=== PATIENT | female | born 1970 | race Caucasian/White ===

== ENCOUNTER 2020-10-07 02:17 | Outpatient (CLI) | payer MEDICAID, SELFPAY ==
--- NOTE | 2020-10-07 14:07 | DI.US_ITS ---
APPROVED REPORT EXAM: Comprehensive 2D, Doppler, and color-flow Echocardiogram Patient Location: Out-Patient Rn On Site: Larissa Reyes RDCS ([place]) Indications: Malignant neoplasm of overlapping sites of Right breast, Pre Chemotherapy Other Information Study Quality: Good Conclusion Left Ventricle : The left ventricle is normal size. The left ventricular systolic function is normal. The left ventricular ejection fraction is within the normal range. There is normal left ventricular wall thickness. There is normal LV segmental wall motion. The left ventricular diastolic function is normal. LVEF is 59%. Average global longitudinal strain is -17.64%. Right Ventricle : The right ventricle is normal size. The right ventricular systolic function is norm al. The RVSP is 21.3mmHg. Valves: There are no hemodynamically significant valvular lesions. Great Vessels : The aortic root is normal in size. The ascending aorta is normal in size. Aortic arch is normal in caliber. IVC is normal in size and collapses >50% with inspiration. Please see remainder of study for further details. Wall motion Left Ventricle The left ventricle is normal size. The left ventricular systolic function is normal. The left ventric ular ejection fraction is within the normal range. There is normal left ventricular wall thickness. T here is normal LV segmental wall motion. The left ventricular diastolic function is normal. There is no ventricular septal defect visualized. LVEF is 59%. Average global longitudinal strain is -17.64%. Right Ventricle The right ventricle is normal size. The right ventricular systolic function is normal. The RVSP is 21 .3mmHg. Atria The left atrium size is normal. The right atrium size is normal. The interatrial septum is intact wit h no evidence for an atrial septal defect. Aortic Valve The aortic valve is normal in structure. Aortic valve is trileaflet. There is no aortic valvular sten osis. Trace aortic regurgitation. Mitral Valve The mitral valve is normal in structure. No evidence of mitral valve stenosis. Trace mitral regurgita tion. Tricuspid Valve The tricuspid valve is normal in structure. There is no tricuspid valve stenosis. Trace tricuspid reg urgitation. Pulmonic Valve The pulmonary valve is normal in structure. There is no pulmonic valvular stenosis. There is no pulmo graciela valvular regurgitation. Great Vessels The aortic root is normal in size. The ascending aorta is normal in size. Aortic arch is normal in ca liber. IVC is normal in size and collapses >50% with inspiration. Pericardium There is no pericardial effusion. 2D Dimensions IVSD d PLAX 0.81 cm F: 0.6-1.0 LV Vol A2C d MOD 75.8 mL LVPW d PLAX 0.80 cm F: 0.6 - 1.0 LV Vol A4C d MOD 68.8 mL LVID d PLAX 4.20 cm F: 3.8 - 5.2 LA vol/ BSA A4C s A-L 10.5 mL/m2 LVDs 2.87 cm F: 2.2 - 3.5 LA Area A4C s MOD 8.41 cm2 Ao Root d 2.43 cm F: 2.7 - 3.3 LV EF A4C MOD 60.7 % RA Area A4C 12.29 cm2 LV EF A2C MOD 58.3 % RA Vol/ BSA A4C s A-L 18.1 mL/m2 LV EF Biplane MOD 58.4 % Ao Asc Diam d 2.73 cm F: 2.3 - 3.1 SV 43.91 mL LV EF Teichholz 59.7 % SV Index 27.05 mL/m2 LVEF (Bell's) 58.36 % F: 54 - 74 LV Volume 60.80 mL F: 46 - 106 LV Volume Index 37.53 mL/m2 F: 29 - 61 LV Vol Biplane MOD 75.2 mL CO 3.27 mL/min FS 31.50 % M-Mode TAPSE 2.27 cm (M/F) >1.7 LV Diastology MV E' medial 0.111 (>0.07 m/s) E/A Ratio 1.1 LV E/e MED 6.50 (<14) MV E Vmax 0.72 (0.4-1.3 m/s) MV E' lateral 0.144 (>0.1 m/s) MV A Vmax 0.65 (0.4-1.3 m/s) LV E/e LAT 5.00 (<14) MV E/A Ratio 1.04 MV E/E' medial 6.51 MV E/E' lateral 5.02 Aortic Valve LVOT Area 2.89 cm2 AoV Area Vmax 2.50 cm2 LVOT Vmax 1.37 m/s AoV Area/ BSA (Vmax) 1.54 cm2/m2 LVOT Mean Usman. 0.85 m/s ZEYNEP Mean Usman. 2.32 cm2 LVOT Peak Grad 7.5 mmHg ZEYNEP Mean Usman. Index 1.43 cm2/m2 LVOT Mean Grad 3.5 mmHg AR DT 2116 msec LVOT VTI 0.260 m AR PHT 614 msec LVOT Diam s 1.90 cm AoV Vmax 1.58 m/s Velocity Ratio 0.86 AoV Mean Usman. 1.06 m/s AoV Peak Grad 10.0 mmHg LVOT SV 74.95 mL AoV Mean Grad 5.1 mmHg AoV VTI 0.251 m AoV Area VTI 2.99 cm2 AoV Area/ BSA (VTI) 1.84 cm/m2 Mitral Valve MV DT 255 (160-240 msec) MV PHT 74 msec MV Area PHT 2.98 cm2 MV VTI 0.208 m MV VTI Annulus 0.214 m MV Area VTI 3.70 (4.0-6.0 cm2) Pulmonary Valve PV Vmax 1.09 (0.5-1.5 m/s) RVOT Peak Gr. 2.23 mmHg PV Peak Grad 4.7 mmHg RVOT Mean Gr. 1.35 mmHg PV Mean Grad 3.1 mmHg RVOT VTI 0.164 m PV VTI 0.234 m RVOT Vmax 0.75 m/s Tricuspid Valve TR Peak Grad 18.3 mmHg TR Vmax 2.14 m/s RA Pressure 3.00 mmHg RVSP (TR) 21.3 mmHg
== END 2020-10-07 02:37 ==
PROVIDERS: PCP Neuromusculoskeletal Medicine & OMM; Visit Provider Internal Medicine Hematology & Oncology
DX: C50.811 Malignant neoplasm of overlapping sites of right female breast (principal); Z17.1 Estrogen receptor negative status [ER-]; Z01.810 Encounter for preprocedural cardiovascular examination
CPT/HCPCS: 93306

== ENCOUNTER 2020-11-20 03:28 | Outpatient (RCR) | payer MEDICAID, SELFPAY ==
[2020-10-30 08:39] LABS: Absolute Basophil Count 0.04 10^3/uL (0.0-0.2); Absolute Eosinophil Count 0.21 10^3/uL (0.0-0.7); Absolute Lymphocyte Count 2.12 10^3/uL (1.2-3.4); Absolute Monocyte Count 0.43 10^3/uL (0.1-0.8); Absolute Neutrophil Count 2.78 10^3/uL (1.2-6.7); Basophils % 0.7; Eosinophils % 3.8; HCT 36.5 % (36.0-46.0); HGB 12.8 g/dL (11.2-15.7); MCH 29.8 pg (27.0-33.0); MCHC 35.1 % (32.0-36.0); MCV 84.9 fL (80-95); MPV 11.3 fL (8.0-11.0); Monocytes % 7.7; Neutrophils % 49.8; Nucleated RBC 0 %; Platelet Count 294 10^3/uL (130-400); RDW 12.4 % (11.7-14.6); RDW-SD 37.8 fL; WBC 5.58 10^3/uL (4.4-10.8)
[2020-10-30 08:58] LABS: ALT 23 U/L (14-59); AST 12 U/L (15-37); Albumin 3.7 g/dL (3.4-5.0); Alkaline Phosphatase 64 U/L (46-116); Anion Gap 9.8 mmol/L (3-11); BUN 16 mg/dL (7-18); Bilirubin, Total 0.8 mg/dL (0.2-1.0); CO2 28.2 mmol/L (21.0-32.0); CREATININE 0.8 mg/dL (0.55-1.02); Chloride 103 mmol/L (98-107); Glucose 88 mg/dL (74-106); Potassium 3.8 mmol/L (3.5-5.1); Sodium 141 mmol/L (136-145); Total Protein 7.6 g/dL (6.4-8.2)
[2020-11-20] MEDS: Normal Saline Flush 10 ML SYR IVP (08:05)
[2020-11-20 08:12] LABS: Abs Immature Grans 0.01 10^3/uL (0.0-0.06); Absolute Basophil Count 0.05 10^3/uL (0.0-0.2); Absolute Eosinophil Count 0.05 10^3/uL (0.0-0.7); Absolute Lymphocyte Count 1.44 10^3/uL (1.2-3.4); Absolute Monocyte Count 0.57 10^3/uL (0.1-0.8); Absolute Neutrophil Count 2.82 10^3/uL (1.2-6.7); HCT 31.6 % (36.0-46.0); HGB 10.9 g/dL (11.2-15.7); Immature Grans % 0.2; Lymphocytes % 29.1; MCH 29.9 pg (27.0-33.0); MCHC 34.5 % (32.0-36.0); MCV 86.6 fL (80-95); MPV 10.8 fL (8.0-11.0); Monocytes % 11.5; Neutrophils % 57.2; Nucleated RBC 0 %; Platelet Count 365 10^3/uL (130-400); RBC 3.65 10^6/uL (3.93-5.22); RDW 13.3 % (11.7-14.6); RDW-SD 40.4 fL; WBC 4.94 10^3/uL (4.4-10.8)
[2020-11-20 08:29] LABS: ALT 50 U/L (14-59); AST 19 U/L (15-37); Albumin 3.7 g/dL (3.4-5.0); Alkaline Phosphatase 55 U/L (46-116); Anion Gap 7.9 mmol/L (3-11); BUN 13 mg/dL (7-18); Bilirubin, Total 0.6 mg/dL (0.2-1.0); CO2 28.1 mmol/L (21.0-32.0); CREATININE 0.8 mg/dL (0.55-1.02); Chloride 106 mmol/L (98-107); Glucose 94 mg/dL (74-106); Potassium 3.8 mmol/L (3.5-5.1); Sodium 142 mmol/L (136-145); Total Protein 7.2 g/dL (6.4-8.2)
== END 2020-11-26 23:59 | disposition home or self-care (01) ==
LOC: INF 03:28
PROVIDERS: PCP Neuromusculoskeletal Medicine & OMM; Visit Provider Internal Medicine Hematology & Oncology
DX: C50.811 Malignant neoplasm of overlapping sites of right female breast (principal); Z17.0 Estrogen receptor positive status [ER+]; Z45.2 Encounter for adjustment and management of vascular access device
CPT/HCPCS: 36591; 80053; 85025

== ENCOUNTER 2020-12-11 03:03 | Outpatient (RCR) | payer MEDICAID, SELFPAY ==
[2020-12-11] MEDS: Normal Saline Flush 10 ML SYR IVP (10:34)
[2020-12-11 10:37] LABS: Abs Immature Grans 0.01 10^3/uL (0.0-0.06); Absolute Basophil Count 0.04 10^3/uL (0.0-0.2); Absolute Eosinophil Count 0.01 10^3/uL (0.0-0.7); Absolute Lymphocyte Count 1.61 10^3/uL (1.2-3.4); Absolute Monocyte Count 0.49 10^3/uL (0.1-0.8); Absolute Neutrophil Count 2.35 10^3/uL (1.2-6.7); Basophils % 0.9; Eosinophils % 0.2; HCT 31.3 % (36.0-46.0); HGB 10.7 g/dL (11.2-15.7); Immature Grans % 0.2; Lymphocytes % 35.7; MCH 30.2 pg (27.0-33.0); MCHC 34.2 % (32.0-36.0); MCV 88.4 fL (80-95); MPV 11.1 fL (8.0-11.0); Monocytes % 10.9; Neutrophils % 52.1; Nucleated RBC 0 %; Platelet Count 248 10^3/uL (130-400); RBC 3.54 10^6/uL (3.93-5.22); RDW 15.1 % (11.7-14.6); RDW-SD 47.6 fL; WBC 4.51 10^3/uL (4.4-10.8)
[2020-12-11 11:04] LABS: ALT 80 U/L (14-59); AST 37 U/L (15-37); Alkaline Phosphatase 65 U/L (46-116); Anion Gap 9.3 mmol/L (3-11); BUN 11 mg/dL (7-18); Bilirubin, Total 0.7 mg/dL (0.2-1.0); CO2 26.7 mmol/L (21.0-32.0); CREATININE 0.9 mg/dL (0.55-1.02); Calcium 9.4 mg/dL (8.5-10.1); Chloride 105 mmol/L (98-107); Glucose 93 mg/dL (74-106); Potassium 3.7 mmol/L (3.5-5.1); Sodium 141 mmol/L (136-145); Total Protein 7.6 g/dL (6.4-8.2)
== END 2020-12-27 23:59 | disposition home or self-care (01) ==
LOC: INF 03:03
PROVIDERS: PCP Neuromusculoskeletal Medicine & OMM; Visit Provider Internal Medicine Hematology & Oncology
DX: C50.811 Malignant neoplasm of overlapping sites of right female breast (principal); Z17.0 Estrogen receptor positive status [ER+]; Z45.2 Encounter for adjustment and management of vascular access device
CPT/HCPCS: 36591; 80053; 85025

== ENCOUNTER 2021-01-22 02:30 | Outpatient (RCR) | payer MEDICAID, SELFPAY ==
[2021-01-01 09:45] LABS: Absolute Basophil Count 0.02 10^3/uL (0.0-0.2); Absolute Lymphocyte Count 1.29 10^3/uL (1.2-3.4); Absolute Monocyte Count 0.43 10^3/uL (0.1-0.8); Basophils % 0.5; HCT 29.6 % (36.0-46.0); Lymphocytes % 31.2; MCH 31.2 pg (27.0-33.0); MCHC 33.8 % (32.0-36.0); MCV 92.2 fL (80-95); MPV 10.4 fL (8.0-11.0); Monocytes % 10.4; Neutrophils % 57.9; Nucleated RBC 0 %; Platelet Count 243 10^3/uL (130-400); RBC 3.21 10^6/uL (3.93-5.22); RDW 16.3 % (11.7-14.6); RDW-SD 55.3 fL; WBC 4.14 10^3/uL (4.4-10.8)
[2021-01-01] MEDS: Normal Saline Flush 10 ML SYR IVP (09:50)
[2021-01-01 10:00] LABS: ALT 90 U/L (14-59); AST 39 U/L (15-37); Albumin 3.7 g/dL (3.4-5.0); Alkaline Phosphatase 72 U/L (46-116); Anion Gap 7.4 mmol/L (3-11); BUN 12 mg/dL (7-18); Bilirubin, Total 0.4 mg/dL (0.2-1.0); CO2 28.6 mmol/L (21.0-32.0); CREATININE 0.7 mg/dL (0.55-1.02); Calcium 9.2 mg/dL (8.5-10.1); Chloride 105 mmol/L (98-107); Glucose 92 mg/dL (74-106); Potassium 3.8 mmol/L (3.5-5.1); Sodium 141 mmol/L (136-145); Total Protein 7.1 g/dL (6.4-8.2)
[2021-01-22] MEDS: Normal Saline Flush 10 ML SYR IVP (08:59)
[2021-01-22 09:05] LABS: Abs Immature Grans 0.01 10^3/uL (0.0-0.06); Absolute Basophil Count 0.02 10^3/uL (0.0-0.2); Absolute Lymphocyte Count 1.38 10^3/uL (1.2-3.4); Absolute Monocyte Count 0.43 10^3/uL (0.1-0.8); Basophils % 0.5; HCT 29.3 % (36.0-46.0); HGB 9.7 g/dL (11.2-15.7); Immature Grans % 0.2; Lymphocytes % 33.3; MCH 31.4 pg (27.0-33.0); MCHC 33.1 % (32.0-36.0); MCV 94.8 fL (80-95); MPV 10.3 fL (8.0-11.0); Monocytes % 10.4; Neutrophils % 55.6; Nucleated RBC 0 %; Platelet Count 237 10^3/uL (130-400); RBC 3.09 10^6/uL (3.93-5.22); RDW 16.1 % (11.7-14.6); RDW-SD 56.5 fL; WBC 4.14 10^3/uL (4.4-10.8)
[2021-01-22 09:19] LABS: ALT 63 U/L (14-59); AST 36 U/L (15-37); Albumin 3.6 g/dL (3.4-5.0); Alkaline Phosphatase 66 U/L (46-116); Anion Gap 5.7 mmol/L (3-11); BUN 14 mg/dL (7-18); Bilirubin, Total 0.5 mg/dL (0.2-1.0); CO2 31.3 mmol/L (21.0-32.0); CREATININE 0.8 mg/dL (0.55-1.02); Calcium 9.1 mg/dL (8.5-10.1); Chloride 106 mmol/L (98-107); Glucose 86 mg/dL (74-106); Potassium 3.8 mmol/L (3.5-5.1); Sodium 143 mmol/L (136-145); Total Protein 7.1 g/dL (6.4-8.2)
== END 2021-01-27 23:59 | disposition home or self-care (01) ==
LOC: INF 02:30
PROVIDERS: PCP Neuromusculoskeletal Medicine & OMM; Visit Provider Internal Medicine Hematology & Oncology
DX: C50.811 Malignant neoplasm of overlapping sites of right female breast (principal); Z17.0 Estrogen receptor positive status [ER+]; Z45.2 Encounter for adjustment and management of vascular access device
CPT/HCPCS: 36591; 80053; 85025

== ENCOUNTER 2021-02-12 02:41 | Outpatient (RCR) | payer MEDICAID, SELFPAY ==
[2021-02-12] MEDS: Normal Saline Flush 10 ML SYR IVP (10:41)
[2021-02-12 11:04] LABS: ALT 56 U/L (14-59); AST 33 U/L (15-37); Abs Immature Grans 0.01 10^3/uL (0.0-0.06); Absolute Basophil Count 0.03 10^3/uL (0.0-0.2); Absolute Monocyte Count 0.53 10^3/uL (0.1-0.8); Absolute Neutrophil Count 2.03 10^3/uL (1.2-6.7); Albumin 3.7 g/dL (3.4-5.0); Alkaline Phosphatase 65 U/L (46-116); Anion Gap 4.7 mmol/L (3-11); BUN 16 mg/dL (7-18); Basophils % 0.8; Bilirubin, Total 0.4 mg/dL (0.2-1.0); CO2 30.3 mmol/L (21.0-32.0); CREATININE 0.8 mg/dL (0.55-1.02); Calcium 8.8 mg/dL (8.5-10.1); Chloride 106 mmol/L (98-107); Glucose 95 mg/dL (74-106); HCT 28.7 % (36.0-46.0); HGB 9.5 g/dL (11.2-15.7); Immature Grans % 0.3; Lymphocytes % 33.3; MCH 32.3 pg (27.0-33.0); MCHC 33.1 % (32.0-36.0); MCV 97.6 fL (80-95); MPV 10.6 fL (8.0-11.0); Monocytes % 13.6; Nucleated RBC 0 %; Platelet Count 207 10^3/uL (130-400); Potassium 3.7 mmol/L (3.5-5.1); RBC 2.94 10^6/uL (3.93-5.22); RDW 15.4 % (11.7-14.6); RDW-SD 55.4 fL; Sodium 141 mmol/L (136-145); Total Protein 7.2 g/dL (6.4-8.2)
== END 2021-02-26 23:59 | disposition home or self-care (01) ==
LOC: INF 02:41
PROVIDERS: PCP Neuromusculoskeletal Medicine & OMM; Visit Provider Internal Medicine Hematology & Oncology
DX: C50.811 Malignant neoplasm of overlapping sites of right female breast (principal); Z17.0 Estrogen receptor positive status [ER+]; Z45.2 Encounter for adjustment and management of vascular access device
CPT/HCPCS: 36591; 80053; 85025

== ENCOUNTER 2021-04-09 01:46 | Outpatient (RCR) | payer MEDICAID, SELFPAY ==
[2021-04-09] MEDS: Normal Saline Flush 10 ML SYR IVP (11:02)
[2021-04-09 11:30] LABS: Absolute Basophil Count 0.01 10^3/uL (0.0-0.2); Absolute Eosinophil Count 0.31 10^3/uL (0.0-0.7); Absolute Lymphocyte Count 1.85 10^3/uL (1.2-3.4); Absolute Monocyte Count 0.39 10^3/uL (0.1-0.8); Absolute Neutrophil Count 2.65 10^3/uL (1.2-6.7); Basophils % 0.2; HCT 32.4 % (36.0-46.0); HGB 11.1 g/dL (11.2-15.7); Lymphocytes % 35.5; MCH 32.4 pg (27.0-33.0); MCHC 34.3 % (32.0-36.0); MCV 94.5 fL (80-95); MPV 10.4 fL (8.0-11.0); Monocytes % 7.5; Neutrophils % 50.8; Nucleated RBC 0 %; Platelet Count 270 10^3/uL (130-400); RBC 3.43 10^6/uL (3.93-5.22); RDW 11.4 % (11.7-14.6); RDW-SD 39.1 fL; WBC 5.21 10^3/uL (4.4-10.8)
[2021-04-09 11:52] LABS: Albumin 3.7 g/dL (3.4-5.0); Alkaline Phosphatase 53 U/L (46-116); Anion Gap 6.8 mmol/L (3-11); BUN 17 mg/dL (7-18); Bilirubin, Total 0.5 mg/dL (0.2-1.0); CO2 29.2 mmol/L (21.0-32.0); CREATININE 0.9 mg/dL (0.55-1.02); Calcium 9.2 mg/dL (8.5-10.1); Chloride 106 mmol/L (98-107); Glucose 90 mg/dL (74-106); Sodium 142 mmol/L (136-145); Total Protein 7.5 g/dL (6.4-8.2)
[2021-04-09 11:53] LABS: ALT 44 U/L (14-59); AST 30 U/L (15-37)
== END 2021-04-28 23:59 | disposition home or self-care (01) ==
LOC: INF 01:46
PROVIDERS: PCP Neuromusculoskeletal Medicine & OMM; Visit Provider Internal Medicine Hematology & Oncology
DX: C50.811 Malignant neoplasm of overlapping sites of right female breast (principal); Z17.0 Estrogen receptor positive status [ER+]; Z45.2 Encounter for adjustment and management of vascular access device
CPT/HCPCS: 36591; 80053; 85025

== ENCOUNTER 2021-04-14 08:40 | Outpatient (CLI) | payer MEDICAID, SELFPAY ==
--- NOTE | 2021-04-14 14:31 | DI.US_ITS ---
APPROVED REPORT EXAM: Comprehensive 2D, Doppler, and color-flow Echocardiogram Patient Location: Out-Patient [employer] Le[employer] Mosser: Larissa Reyes RDCS ([place]) Indications: Breast cancer treatment Other Information Study Quality: Good Conclusion Normal left ventricular wall thickness and chamber size. Estimated ejection fraction is 60%. Wall m otion is normal Normal right ventricular size and systolic function Both atria are normal in size The aortic valve is trileaflet with trace regurgitation Normal mitral valve with mild regurgitation Normal tricuspid valve with mild regurgitation. Estimated right ventricular systolic pressure is nor mal at 20 mmHg Normal pulmonic valve with trace regurgitation Wall motion Left Ventricle The left ventricle is normal size. The left ventricular systolic function is normal. The left ventric ular ejection fraction is within the normal range. There is normal left ventricular wall thickness. T here is normal LV segmental wall motion. There is no ventricular septal defect visualized. LVEF is 60 %. Right Ventricle The right ventricle is normal size. The right ventricular systolic function is normal. The RVSP is 19 .9mmHg. Atria The left atrium size is normal. The right atrium size is normal. The interatrial septum is intact wit h no evidence for an atrial septal defect. Aortic Valve The aortic valve is normal in structure. Aortic valve is trileaflet. There is no aortic valvular sten osis. Trace aortic regurgitation. Mitral Valve The mitral valve is normal in structure. No evidence of mitral valve stenosis. Mild mitral regurgitat ion. Tricuspid Valve The tricuspid valve is normal in structure. There is no tricuspid valve stenosis. Mild tricuspid regu rgitation. Pulmonic Valve The pulmonary valve is normal in structure. There is no pulmonic valvular stenosis. Trace pulmonic re gurgitation. Great Vessels The aortic root is normal in size. The ascending aorta is normal in size. Aortic arch is normal in ca liber. IVC is normal in size and collapses >50% with inspiration. Pericardium There is no pericardial effusion. 2D Dimensions IVSD d PLAX 0.78 cm F: 0.6-1.0 LV Vol A2C d MOD 92.6 mL LVPW d PLAX 0.81 cm F: 0.6 - 1.0 LV Vol A4C d MOD 83.4 mL LVID d PLAX 4.39 cm F: 3.8 - 5.2 LA vol/ BSA A2C s A-L 16.4 mL/m2 LVDs 2.85 cm F: 2.2 - 3.5 LA vol/ BSA A4C s A-L 17.3 mL/m2 Ao Root d 2.47 cm F: 2.7 - 3.3 LA Vol/ BSA Biplane s A-L 17.1 mL/m2 RA Area A4C 12.18 cm2 LA Area A4C s MOD 11.47 cm2 RA Vol/ BSA A4C s A-L 20.6 mL/m2 LA Area A2C s MOD 10.98 cm2 Ao Asc Diam d 2.78 cm F: 2.3 - 3.1 LV EF A4C MOD 60.1 % LV EF Teichholz 64.0 % LV EF A2C MOD 60.5 % LVEF (Bell's) 59.25 % F: 54 - 74 LV EF Biplane MOD 59.3 % LV Volume 73.03 mL F: 46 - 106 SV 52.77 mL LV Volume Index 46.81 mL/m2 F: 29 - 61 SV Index 33.77 mL/m2 LV Vol Biplane MOD 89.1 mL FS 34.65 % M-Mode TAPSE 2.36 cm (M/F) >1.7 LV Diastology MV E' medial 0.137 (>0.07 m/s) E/A Ratio 1.4 LV E/e MED 6.20 (<14) MV E Vmax 0.85 (0.4-1.3 m/s) MV E' lateral 0.185 (>0.1 m/s) MV A Vmax 0.60 (0.4-1.3 m/s) LV E/e LAT 4.60 (<14) MV E/A Ratio 1.39 MV E/E' medial 6.21 MV E/E' lateral 4.60 Aortic Valve LVOT Area 2.92 cm2 AoV Area Vmax 2.38 cm2 LVOT Vmax 1.27 m/s AoV Area/ BSA (Vmax) 1.52 cm2/m2 LVOT Mean Usman. 0.84 m/s ZEYNEP Mean Usman. 2.31 cm2 LVOT Peak Grad 6.4 mmHg ZEYNEP Mean Usman. Index 1.48 cm2/m2 LVOT Mean Grad 3.3 mmHg LVOT VTI 0.292 m LVOT Diam s 1.90 cm AoV Vmax 1.56 m/s Velocity Ratio 0.81 AoV Mean Usman. 1.06 m/s AoV Peak Grad 9.7 mmHg LVOT SV 85.42 mL AoV Mean Grad 5.1 mmHg AoV VTI 0.318 m AoV Area VTI 2.69 cm2 AoV Area/ BSA (VTI) 1.72 cm/m2 Mitral Valve MV DT 199 (160-240 msec) MR Vmax 5.48 m/s MV PHT 58 msec MR VTI 1.886 m MV Area PHT 3.82 cm2 MR Peak Grad 119.9 mmHg MV VTI 0.320 m MR Mean Grad 81.8 mmHg MV VTI Annulus 0.320 m MV Area VTI 2.67 (4.0-6.0 cm2) Pulmonary Valve PV Vmax 0.83 (0.5-1.5 m/s) RVOT Peak Gr. 1.39 mmHg PV Peak Grad 2.8 mmHg RVOT Mean Gr. 0.65 mmHg PV Mean Grad 1.5 mmHg RVOT VTI 0.139 m PV VTI 0.179 m RVOT Vmax 0.59 m/s Tricuspid Valve TR Peak Grad 16.8 mmHg TR Vmax 2.05 m/s RA Pressure 3.00 mmHg RVSP (TR) 19.9 mmHg
== END 2021-04-14 09:00 ==
PROVIDERS: PCP Neuromusculoskeletal Medicine & OMM; Visit Provider Internal Medicine Hematology & Oncology
DX: I08.1 Rheumatic disorders of both mitral and tricuspid valves (principal); C50.811 Malignant neoplasm of overlapping sites of right female breast; Z17.0 Estrogen receptor positive status [ER+]
CPT/HCPCS: 93306

== ENCOUNTER 2021-05-21 02:56 | Outpatient (RCR) | payer MEDICAID, SELFPAY ==
[2021-04-30] MEDS: Normal Saline Flush 10 ML SYR IVP (08:31)
[2021-04-30 08:43] LABS: Abs Immature Grans 0.01 10^3/uL (0.0-0.06); Absolute Basophil Count 0.02 10^3/uL (0.0-0.2); Absolute Eosinophil Count 0.16 10^3/uL (0.0-0.7); Absolute Lymphocyte Count 1.93 10^3/uL (1.2-3.4); Absolute Monocyte Count 0.31 10^3/uL (0.1-0.8); Absolute Neutrophil Count 2.06 10^3/uL (1.2-6.7); Basophils % 0.4; Eosinophils % 3.6; HCT 33.7 % (36.0-46.0); HGB 11.5 g/dL (11.2-15.7); Immature Grans % 0.2; MCH 31.7 pg (27.0-33.0); MCHC 34.1 % (32.0-36.0); MCV 92.8 fL (80-95); MPV 10.2 fL (8.0-11.0); Monocytes % 6.9; Neutrophils % 45.9; Nucleated RBC 0 %; Platelet Count 257 10^3/uL (130-400); RBC 3.63 10^6/uL (3.93-5.22); RDW-SD 37.5 fL; WBC 4.49 10^3/uL (4.4-10.8)
[2021-04-30 08:59] LABS: ALT 28 U/L (14-59); AST 18 U/L (15-37); Albumin 3.8 g/dL (3.4-5.0); Alkaline Phosphatase 63 U/L (46-116); BUN 17 mg/dL (7-18); Bilirubin, Total 0.5 mg/dL (0.2-1.0); CREATININE 0.9 mg/dL (0.55-1.02); Calcium 9.4 mg/dL (8.5-10.1); Chloride 104 mmol/L (98-107); Glucose 88 mg/dL (74-106); Potassium 3.9 mmol/L (3.5-5.1); Sodium 141 mmol/L (136-145); Total Protein 7.6 g/dL (6.4-8.2)
[2021-05-21 10:06] LABS: Abs Immature Grans 0.01 10^3/uL (0.0-0.06); Absolute Basophil Count 0.02 10^3/uL (0.0-0.2); Absolute Eosinophil Count 0.19 10^3/uL (0.0-0.7); Absolute Lymphocyte Count 2.31 10^3/uL (1.2-3.4); Absolute Monocyte Count 0.34 10^3/uL (0.1-0.8); Absolute Neutrophil Count 2.08 10^3/uL (1.2-6.7); Basophils % 0.4; Eosinophils % 3.8; HCT 34.2 % (36.0-46.0); HGB 11.4 g/dL (11.2-15.7); Immature Grans % 0.2; Lymphocytes % 46.7; MCHC 33.3 % (32.0-36.0); MCV 92.9 fL (80-95); MPV 10.4 fL (8.0-11.0); Monocytes % 6.9; Nucleated RBC 0 %; Platelet Count 230 10^3/uL (130-400); RBC 3.68 10^6/uL (3.93-5.22); RDW 11.4 % (11.7-14.6); WBC 4.95 10^3/uL (4.4-10.8)
[2021-05-21 10:19] LABS: ALT 31 U/L (14-59); AST 16 U/L (15-37); Albumin 3.8 g/dL (3.4-5.0); Alkaline Phosphatase 59 U/L (46-116); Anion Gap 7.3 mmol/L (3-11); BUN 20 mg/dL (7-18); Bilirubin, Total 0.6 mg/dL (0.2-1.0); CO2 30.7 mmol/L (21.0-32.0); CREATININE 1.1 mg/dL (0.55-1.02); Calcium 9.3 mg/dL (8.5-10.1); Chloride 104 mmol/L (98-107); Estimated GFR 52.79 (mL/min/1.73m2); Glucose 81 mg/dL (74-106); Potassium 3.8 mmol/L (3.5-5.1); Sodium 142 mmol/L (136-145); Total Protein 7.6 g/dL (6.4-8.2)
[2021-05-21] MEDS: Normal Saline Flush 10 ML SYR IVP (10:31)
== END 2021-05-29 23:59 | disposition home or self-care (01) ==
LOC: INF 02:56
PROVIDERS: PCP Neuromusculoskeletal Medicine & OMM; Visit Provider Internal Medicine Hematology & Oncology
DX: C50.811 Malignant neoplasm of overlapping sites of right female breast (principal); Z45.2 Encounter for adjustment and management of vascular access device; Z17.0 Estrogen receptor positive status [ER+]
CPT/HCPCS: 36591; 80053; 85025

== ENCOUNTER 2021-06-11 03:38 | Outpatient (RCR) | payer MEDICAID, SELFPAY ==
[2021-06-11] MEDS: Normal Saline Flush 10 ML SYR IVP (08:08)
[2021-06-11 08:27] LABS: Abs Immature Grans 0.01 10^3/uL (0.0-0.06); Absolute Basophil Count 0.02 10^3/uL (0.0-0.2); Absolute Lymphocyte Count 2.11 10^3/uL (1.2-3.4); Absolute Monocyte Count 0.41 10^3/uL (0.1-0.8); Absolute Neutrophil Count 2.81 10^3/uL (1.2-6.7); Basophils % 0.4; Eosinophils % 3.6; HCT 34.4 % (36.0-46.0); HGB 11.5 g/dL (11.2-15.7); Immature Grans % 0.2; Lymphocytes % 37.9; MCH 30.4 pg (27.0-33.0); MCHC 33.4 % (32.0-36.0); MPV 10.1 fL (8.0-11.0); Monocytes % 7.4; Neutrophils % 50.5; Nucleated RBC 0 %; Platelet Count 240 10^3/uL (130-400); RBC 3.78 10^6/uL (3.93-5.22); RDW 11.8 % (11.7-14.6); RDW-SD 39.4 fL; WBC 5.56 10^3/uL (4.4-10.8)
[2021-06-11 08:45] LABS: ALT 26 U/L (14-59); AST 15 U/L (15-37); Albumin 3.6 g/dL (3.4-5.0); Alkaline Phosphatase 56 U/L (46-116); Anion Gap 10.3 mmol/L (3-11); BUN 15 mg/dL (7-18); Bilirubin, Total 0.3 mg/dL (0.2-1.0); CO2 27.7 mmol/L (21.0-32.0); CREATININE 0.9 mg/dL (0.55-1.02); Chloride 103 mmol/L (98-107); Glucose 119 mg/dL (74-106); Potassium 3.5 mmol/L (3.5-5.1); Sodium 141 mmol/L (136-145); Total Protein 7.4 g/dL (6.4-8.2)
== END 2021-06-29 23:59 | disposition home or self-care (01) ==
LOC: INF 03:38
PROVIDERS: PCP Neuromusculoskeletal Medicine & OMM; Visit Provider Internal Medicine Hematology & Oncology
DX: C50.811 Malignant neoplasm of overlapping sites of right female breast (principal); Z17.0 Estrogen receptor positive status [ER+]; Z45.2 Encounter for adjustment and management of vascular access device
CPT/HCPCS: 36591; 80053; 85025

== ENCOUNTER 2021-07-23 01:19 | Outpatient (RCR) | payer MEDICAID, SELFPAY ==
[2021-07-02] MEDS: Normal Saline Flush 10 ML SYR IVP (08:53)
[2021-07-02 09:14] LABS: Absolute Basophil Count 0.02 10^3/uL (0.0-0.2); Absolute Eosinophil Count 0.17 10^3/uL (0.0-0.7); Absolute Lymphocyte Count 2.24 10^3/uL (1.2-3.4); Absolute Monocyte Count 0.31 10^3/uL (0.1-0.8); Absolute Neutrophil Count 2.07 10^3/uL (1.2-6.7); Basophils % 0.4; Eosinophils % 3.5; HCT 34.8 % (36.0-46.0); HGB 11.5 g/dL (11.2-15.7); Lymphocytes % 46.6; MCH 29.7 pg (27.0-33.0); MCV 89.9 fL (80-95); MPV 10.8 fL (8.0-11.0); Monocytes % 6.4; Neutrophils % 43.1; Nucleated RBC 0 %; Platelet Count 235 10^3/uL (130-400); RBC 3.87 10^6/uL (3.93-5.22); RDW 12.6 % (11.7-14.6); RDW-SD 41.5 fL; WBC 4.81 10^3/uL (4.4-10.8)
[2021-07-02 09:30] LABS: ALT 30 U/L (14-59); AST 20 U/L (15-37); Albumin 3.8 g/dL (3.4-5.0); Alkaline Phosphatase 59 U/L (46-116); Anion Gap 10.1 mmol/L (3-11); BUN 27 mg/dL (7-18); Bilirubin, Total 0.4 mg/dL (0.2-1.0); CO2 26.9 mmol/L (21.0-32.0); CREATININE 0.9 mg/dL (0.55-1.02); Calcium 9.4 mg/dL (8.5-10.1); Chloride 103 mmol/L (98-107); Glucose 95 mg/dL (74-106); Potassium 3.6 mmol/L (3.5-5.1); Sodium 140 mmol/L (136-145); Total Protein 7.7 g/dL (6.4-8.2)
[2021-07-23] MEDS: Normal Saline Flush 10 ML SYR IVP (08:18)
[2021-07-23 08:28] LABS: Abs Immature Grans 0.01 10^3/uL (0.0-0.06); Absolute Basophil Count 0.02 10^3/uL (0.0-0.2); Absolute Eosinophil Count 0.21 10^3/uL (0.0-0.7); Absolute Lymphocyte Count 2.43 10^3/uL (1.2-3.4); Absolute Monocyte Count 0.36 10^3/uL (0.1-0.8); Absolute Neutrophil Count 2.53 10^3/uL (1.2-6.7); Basophils % 0.4; Eosinophils % 3.8; HCT 35.5 % (36.0-46.0); HGB 11.9 g/dL (11.2-15.7); Immature Grans % 0.2; Lymphocytes % 43.7; MCH 30.1 pg (27.0-33.0); MCHC 33.5 % (32.0-36.0); MCV 89.9 fL (80-95); MPV 10.5 fL (8.0-11.0); Monocytes % 6.5; Neutrophils % 45.4; Nucleated RBC 0 %; Platelet Count 225 10^3/uL (130-400); RBC 3.95 10^6/uL (3.93-5.22); RDW 13.1 % (11.7-14.6); RDW-SD 43.4 fL; WBC 5.56 10^3/uL (4.4-10.8)
[2021-07-23 08:41] LABS: ALT 25 U/L (14-59); AST 16 U/L (15-37); Alkaline Phosphatase 62 U/L (46-116); Anion Gap 7.1 mmol/L (3-11); BUN 23 mg/dL (7-18); Bilirubin, Total 0.8 mg/dL (0.2-1.0); CO2 29.9 mmol/L (21.0-32.0); Calcium 9.4 mg/dL (8.5-10.1); Chloride 103 mmol/L (98-107); Estimated GFR 58.93 (mL/min/1.73m2); Glucose 92 mg/dL (74-106); Potassium 3.7 mmol/L (3.5-5.1); Sodium 140 mmol/L (136-145); Total Protein 7.9 g/dL (6.4-8.2)
== END 2021-07-27 23:59 | disposition home or self-care (01) ==
LOC: INF 01:19
PROVIDERS: PCP Neuromusculoskeletal Medicine & OMM; Visit Provider Internal Medicine Hematology & Oncology
DX: Z45.2 Encounter for adjustment and management of vascular access device (principal); C50.811 Malignant neoplasm of overlapping sites of right female breast; Z17.0 Estrogen receptor positive status [ER+]
CPT/HCPCS: 36591; 80053; 85025

== ENCOUNTER 2021-07-29 01:02 | Outpatient (CLI) | payer MEDICAID, SELFPAY ==
--- NOTE | 2021-07-29 14:11 | DI.US_ITS ---
APPROVED REPORT EXAM: Comprehensive 2D, Doppler, and color-flow Echocardiogram Patient Location: In-Patient [employer] Specialist: Larissa Reyes RDCS ([place]) Indications: Malignant neoplasm of overlapping sites of right breast Other Information Study Quality: Good Conclusion Normal left ventricular wall thickness and chamber size. Estimated ejection fraction is 60%. Wall m otion is normal Normal right ventricular size and systolic function Both atria are normal in size The aortic valve is trileaflet with trace regurgitation Normal mitral valve with mild regurgitation Normal tricuspid valve with trace regurgitation. Estimated right ventricular systolic pressure is 24 mmHg Wall motion Left Ventricle The left ventricle is normal size. The left ventricular systolic function is normal. The left ventric ular ejection fraction is within the normal range. There is normal left ventricular wall thickness. T here is normal LV segmental wall motion. There is no ventricular septal defect visualized. LVEF is 60 %. Right Ventricle The right ventricle is normal size. The right ventricular systolic function is normal. The RVSP is 23 .6 mmHg. Atria The left atrium size is normal. The right atrium size is normal. The interatrial septum is intact wit h no evidence for an atrial septal defect. Aortic Valve The aortic valve is normal in structure. Aortic valve is trileaflet. There is no aortic valvular sten osis. Trace aortic regurgitation. Mitral Valve The mitral valve is normal in structure. No evidence of mitral valve stenosis. Mild mitral regurgitat ion. Tricuspid Valve The tricuspid valve is normal in structure. There is no tricuspid valve stenosis. Trace tricuspid reg urgitation. Pulmonic Valve The pulmonary valve is normal in structure. There is no pulmonic valvular stenosis. There is no pulmo graciela valvular regurgitation. Great Vessels The aortic root is normal in size. The ascending aorta is normal in size. Aortic arch is normal in ca liber. IVC is normal in size and collapses >50% with inspiration. Pericardium There is no pericardial effusion. 2D Dimensions IVSD d PLAX 0.74 cm F: 0.6-1.0 LV Vol A2C d MOD 91.7 mL LVPW d PLAX 0.79 cm F: 0.6 - 1.0 LV Vol A4C d MOD 90.2 mL LVID d PLAX 4.40 cm F: 3.8 - 5.2 LA vol/ BSA A2C s A-L 20.6 mL/m2 LVDs 2.90 cm F: 2.2 - 3.5 LA vol/ BSA A4C s A-L 25.0 mL/m2 Ao Root d 2.50 cm F: 2.7 - 3.3 LA Vol/ BSA Biplane s A-L 23.9 mL/m2 RA Area A4C 12.35 cm2 LA Area A4C s MOD 16.19 cm2 RA Vol/ BSA A4C s A-L 17.9 mL/m2 LA Area A2C s MOD 13.95 cm2 Ao Asc Diam d 2.87 cm F: 2.3 - 3.1 LV EF A4C MOD 60.7 % LV EF Teichholz 62.4 % LV EF A2C MOD 60.5 % LVEF (Bell's) 60.46 % F: 54 - 74 LV EF Biplane MOD 60.5 % LV Volume 73.51 mL F: 46 - 106 SV 55.00 mL LV Volume Index 45.37 mL/m2 F: 29 - 61 SV Index 33.88 mL/m2 LV Vol Biplane MOD 91.0 mL FS 33.40 % M-Mode TAPSE 2.31 cm (M/F) >1.7 LV Diastology MV E' medial 0.131 (>0.07 m/s) E/A Ratio 1.3 LV E/e MED 5.50 (<14) MV E Vmax 0.72 (0.4-1.3 m/s) MV E' lateral 0.172 (>0.1 m/s) MV A Vmax 0.55 (0.4-1.3 m/s) LV E/e LAT 4.20 (<14) MV E/A Ratio 1.32 MV E/E' medial 5.54 MV E/E' lateral 4.20 Aortic Valve LVOT Area 2.86 cm2 AoV Area Vmax 2.55 cm2 LVOT Vmax 1.32 m/s AoV Area/ BSA (Vmax) 1.57 cm2/m2 LVOT Mean Usman. 0.90 m/s ZEYNEP Mean Usman. 2.57 cm2 LVOT Peak Grad 6.9 mmHg ZEYNEP Mean Usman. Index 1.59 cm2/m2 LVOT Mean Grad 3.9 mmHg LVOT VTI 0.275 m LVOT Diam s 1.90 cm AoV Vmax 1.48 m/s Velocity Ratio 0.89 AoV Mean Usman. 1.00 m/s AoV Peak Grad 8.7 mmHg LVOT SV 78.71 mL AoV Mean Grad 4.5 mmHg AoV VTI 0.290 m AoV Area VTI 2.71 cm2 AoV Area/ BSA (VTI) 1.67 cm/m2 Mitral Valve MV DT 205 (160-240 msec) MV PHT 59 msec MV Area PHT 3.70 cm2 Pulmonary Valve PV Vmax 0.74 (0.5-1.5 m/s) RVOT Peak Gr. 0.82 mmHg PV Peak Grad 2.2 mmHg RVOT Mean Gr. 0.40 mmHg PV Mean Grad 1.3 mmHg RVOT VTI 0.082 m PV VTI 0.153 m RVOT Vmax 0.45 m/s Tricuspid Valve TR Peak Grad 20.5 mmHg TR Vmax 2.27 m/s RA Pressure 3.00 mmHg RVSP (TR) 23.6 mmHg
== END 2021-07-29 01:22 ==
PROVIDERS: PCP Neuromusculoskeletal Medicine & OMM; Visit Provider Internal Medicine Hematology & Oncology
DX: C50.811 Malignant neoplasm of overlapping sites of right female breast (principal)
CPT/HCPCS: 93306

== ENCOUNTER 2021-08-13 03:08 | Outpatient (RCR) | payer MEDICAID, SELFPAY ==
[2021-08-13] MEDS: Normal Saline Flush 10 ML SYR IVP (08:54)
[2021-08-13 08:59] LABS: Abs Immature Grans 0.01 10^3/uL (0.0-0.06); Absolute Basophil Count 0.02 10^3/uL (0.0-0.2); Absolute Eosinophil Count 0.14 10^3/uL (0.0-0.7); Absolute Lymphocyte Count 2.12 10^3/uL (1.2-3.4); Absolute Monocyte Count 0.32 10^3/uL (0.1-0.8); Absolute Neutrophil Count 2.01 10^3/uL (1.2-6.7); Basophils % 0.4; HGB 11.2 g/dL (11.2-15.7); Immature Grans % 0.2; Lymphocytes % 45.9; MCH 30.7 pg (27.0-33.0); MCHC 33.9 % (32.0-36.0); MCV 90.4 fL (80-95); MPV 10.3 fL (8.0-11.0); Monocytes % 6.9; Neutrophils % 43.6; Nucleated RBC 0 %; Platelet Count 197 10^3/uL (130-400); RBC 3.65 10^6/uL (3.93-5.22); RDW 13.1 % (11.7-14.6); WBC 4.62 10^3/uL (4.4-10.8)
[2021-08-13 09:10] LABS: ALT 24 U/L (14-59); AST 16 U/L (15-37); Albumin 3.8 g/dL (3.4-5.0); Alkaline Phosphatase 50 U/L (46-116); Anion Gap 7.1 mmol/L (3-11); BUN 18 mg/dL (7-18); Bilirubin, Total 0.5 mg/dL (0.2-1.0); CO2 27.9 mmol/L (21.0-32.0); CREATININE 1.1 mg/dL (0.55-1.02); Chloride 105 mmol/L (98-107); Estimated GFR 52.79 (mL/min/1.73m2); Glucose 114 mg/dL (74-106); Potassium 3.9 mmol/L (3.5-5.1); Sodium 140 mmol/L (136-145); Total Protein 7.6 g/dL (6.4-8.2)
== END 2021-08-27 23:59 | disposition home or self-care (01) ==
LOC: INF 03:08
PROVIDERS: PCP Neuromusculoskeletal Medicine & OMM; Visit Provider Internal Medicine Hematology & Oncology
DX: C50.811 Malignant neoplasm of overlapping sites of right female breast (principal); Z17.0 Estrogen receptor positive status [ER+]; Z45.2 Encounter for adjustment and management of vascular access device
CPT/HCPCS: 36591; 80053; 85025

== ENCOUNTER 2021-09-24 02:32 | Outpatient (RCR) | payer MEDICAID, SELFPAY ==
[2021-09-03] MEDS: Normal Saline Flush 10 ML SYR IVP (08:18)
[2021-09-03 08:24] LABS: Abs Immature Grans 0.01 10^3/uL (0.0-0.06); Absolute Basophil Count 0.01 10^3/uL (0.0-0.2); Absolute Eosinophil Count 0.15 10^3/uL (0.0-0.7); Absolute Lymphocyte Count 2.26 10^3/uL (1.2-3.4); Absolute Neutrophil Count 1.94 10^3/uL (1.2-6.7); Basophils % 0.2; Eosinophils % 3.2; HCT 33.8 % (36.0-46.0); HGB 11.3 g/dL (11.2-15.7); Immature Grans % 0.2; Lymphocytes % 48.4; MCH 30.5 pg (27.0-33.0); MCHC 33.4 % (32.0-36.0); MCV 91.4 fL (80-95); MPV 10.7 fL (8.0-11.0); Monocytes % 6.4; Neutrophils % 41.6; Nucleated RBC 0 %; Platelet Count 217 10^3/uL (130-400); RDW 12.9 % (11.7-14.6); RDW-SD 43.3 fL; WBC 4.67 10^3/uL (4.4-10.8)
[2021-09-03 08:55] LABS: ALT 30 U/L (14-59); AST 18 U/L (15-37); Albumin 3.6 g/dL (3.4-5.0); Alkaline Phosphatase 52 U/L (46-116); Anion Gap 10.9 mmol/L (3-11); BUN 19 mg/dL (7-18); Bilirubin, Total 0.6 mg/dL (0.2-1.0); CO2 26.1 mmol/L (21.0-32.0); Calcium 8.9 mg/dL (8.5-10.1); Chloride 103 mmol/L (98-107); Estimated GFR 58.93 (mL/min/1.73m2); Glucose 124 mg/dL (74-106); Potassium 3.9 mmol/L (3.5-5.1); Sodium 140 mmol/L (136-145); Total Protein 7.5 g/dL (6.4-8.2)
[2021-09-24] MEDS: Normal Saline Flush 10 ML SYR IVP (10:12)
[2021-09-24 10:15] LABS: Absolute Basophil Count 0.01 10^3/uL (0.0-0.2); Absolute Eosinophil Count 0.11 10^3/uL (0.0-0.7); Absolute Lymphocyte Count 2.04 10^3/uL (1.2-3.4); Absolute Monocyte Count 0.34 10^3/uL (0.1-0.8); Absolute Neutrophil Count 2.12 10^3/uL (1.2-6.7); Basophils % 0.2; Eosinophils % 2.4; HCT 33.5 % (36.0-46.0); HGB 11.3 g/dL (11.2-15.7); Lymphocytes % 44.2; MCH 31.2 pg (27.0-33.0); MCHC 33.7 % (32.0-36.0); MCV 92.5 fL (80-95); MPV 10.6 fL (8.0-11.0); Monocytes % 7.4; Neutrophils % 45.8; Platelet Count 206 10^3/uL (130-400); RBC 3.62 10^6/uL (3.93-5.22); RDW 12.7 % (11.7-14.6); WBC 4.62 10^3/uL (4.4-10.8)
[2021-09-24 10:33] LABS: ALT 34 U/L (14-59); AST 19 U/L (15-37); Albumin 3.6 g/dL (3.4-5.0); Alkaline Phosphatase 50 U/L (46-116); Anion Gap 6.8 mmol/L (3-11); BUN 18 mg/dL (7-18); Bilirubin, Total 0.5 mg/dL (0.2-1.0); CO2 29.2 mmol/L (21.0-32.0); CREATININE 0.9 mg/dL (0.55-1.02); Chloride 104 mmol/L (98-107); Glucose 106 mg/dL (74-106); Potassium 3.8 mmol/L (3.5-5.1); Sodium 140 mmol/L (136-145); Total Protein 7.4 g/dL (6.4-8.2)
== END 2021-09-26 23:59 | disposition home or self-care (01) ==
LOC: INF 02:32
PROVIDERS: PCP Neuromusculoskeletal Medicine & OMM; Visit Provider Internal Medicine Hematology & Oncology
DX: Z45.2 Encounter for adjustment and management of vascular access device (principal); C50.811 Malignant neoplasm of overlapping sites of right female breast; Z17.0 Estrogen receptor positive status [ER+]
CPT/HCPCS: 36591; 80053; 85025

== ENCOUNTER 2021-10-15 03:15 | Outpatient (RCR) | payer MEDICAID, SELFPAY ==
[2021-10-15] MEDS: Normal Saline Flush 10 ML SYR IVP (10:08)
[2021-10-15 10:18] LABS: Abs Immature Grans 0.01 10^3/uL (0.0-0.06); Absolute Basophil Count 0.02 10^3/uL (0.0-0.2); Absolute Eosinophil Count 0.14 10^3/uL (0.0-0.7); Absolute Lymphocyte Count 2.32 10^3/uL (1.2-3.4); Absolute Monocyte Count 0.38 10^3/uL (0.1-0.8); Absolute Neutrophil Count 2.03 10^3/uL (1.2-6.7); Basophils % 0.4; Eosinophils % 2.9; HCT 34.3 % (36.0-46.0); HGB 11.6 g/dL (11.2-15.7); Immature Grans % 0.2; Lymphocytes % 47.3; MCHC 33.8 % (32.0-36.0); MCV 92 fL (80-95); MPV 10.6 fL (8.0-11.0); Monocytes % 7.8; Neutrophils % 41.4; Platelet Count 208 10^3/uL (130-400); RBC 3.74 10^6/uL (3.93-5.22); RDW 12.1 % (11.7-14.6); RDW-SD 40.7 fL
[2021-10-15 10:28] LABS: ALT 38 U/L (14-59); AST 20 U/L (15-37); Albumin 3.7 g/dL (3.4-5.0); Alkaline Phosphatase 52 U/L (46-116); Anion Gap 6.5 mmol/L (3-11); BUN 20 mg/dL (7-18); Bilirubin, Total 0.4 mg/dL (0.2-1.0); CO2 29.5 mmol/L (21.0-32.0); Calcium 8.9 mg/dL (8.5-10.1); Chloride 103 mmol/L (98-107); Estimated GFR 58.93 (mL/min/1.73m2); Glucose 82 mg/dL (74-106); Potassium 3.9 mmol/L (3.5-5.1); Sodium 139 mmol/L (136-145); Total Protein 7.6 g/dL (6.4-8.2)
== END 2021-10-27 23:59 | disposition home or self-care (01) ==
LOC: INF 03:15
PROVIDERS: Internal Medicine Hematology & Oncology; PCP Neuromusculoskeletal Medicine & OMM; Visit Provider Internal Medicine Hematology & Oncology
DX: Z45.2 Encounter for adjustment and management of vascular access device (principal); C50.811 Malignant neoplasm of overlapping sites of right female breast; Z17.0 Estrogen receptor positive status [ER+]
CPT/HCPCS: 36591; 80053; 85025

== ENCOUNTER 2021-11-05 02:10 | Outpatient (RCR) | payer MEDICAID, SELFPAY ==
[2021-11-05] MEDS: Normal Saline Flush 10 ML SYR IVP (09:49)
[2021-11-05 09:53] LABS: Abs Immature Grans 0.01 10^3/uL (0.0-0.06); Absolute Basophil Count 0.01 10^3/uL (0.0-0.2); Absolute Eosinophil Count 0.17 10^3/uL (0.0-0.7); Absolute Lymphocyte Count 1.78 10^3/uL (1.2-3.4); Absolute Monocyte Count 0.37 10^3/uL (0.1-0.8); Basophils % 0.2; Eosinophils % 3.9; HCT 33.9 % (36.0-46.0); Immature Grans % 0.2; Lymphocytes % 41.1; MCH 31.7 pg (27.0-33.0); MCHC 35.4 % (32.0-36.0); MCV 89 fL (80-95); MPV 10.6 fL (8.0-11.0); Monocytes % 8.5; Neutrophils % 46.1; Platelet Count 213 10^3/uL (130-400); RBC 3.79 10^6/uL (3.93-5.22); RDW 12.2 % (11.7-14.6); RDW-SD 39.8 fL; WBC 4.33 10^3/uL (4.4-10.8)
[2021-11-05 10:07] LABS: ALT 38 U/L (14-59); AST 21 U/L (15-37); Albumin 3.6 g/dL (3.4-5.0); Alkaline Phosphatase 51 U/L (46-116); BUN 22 mg/dL (7-18); Bilirubin, Total 0.5 mg/dL (0.2-1.0); Calcium 9.1 mg/dL (8.5-10.1); Chloride 104 mmol/L (98-107); Estimated GFR 58.93 (mL/min/1.73m2); Glucose 101 mg/dL (74-106); Potassium 3.9 mmol/L (3.5-5.1); Sodium 140 mmol/L (136-145); Total Protein 7.4 g/dL (6.4-8.2)
== END 2021-11-26 23:59 | disposition home or self-care (01) ==
LOC: INF 02:10
PROVIDERS: Internal Medicine Hematology & Oncology; PCP Neuromusculoskeletal Medicine & OMM; Visit Provider Internal Medicine Hematology & Oncology
DX: Z45.2 Encounter for adjustment and management of vascular access device (principal); C50.811 Malignant neoplasm of overlapping sites of right female breast; Z17.0 Estrogen receptor positive status [ER+]
CPT/HCPCS: 36591; 80053; 85025

== ENCOUNTER 2022-05-06 01:38 | Outpatient (CLI) | payer MEDICAID, SELFPAY ==
[2022-05-06 09:36] LABS: Abs Immature Grans 0.01 10^3/uL (0.0-0.06); Absolute Basophil Count 0.02 10^3/uL (0.0-0.2); Absolute Lymphocyte Count 2.43 10^3/uL (1.2-3.4); Absolute Monocyte Count 0.37 10^3/uL (0.1-0.8); Absolute Neutrophil Count 2.16 10^3/uL (1.2-6.7); Basophils % 0.4; Eosinophils % 3.9; HCT 36.4 % (36.0-46.0); HGB 12.5 g/dL (11.2-15.7); Immature Grans % 0.2; Lymphocytes % 46.8; MCH 30.3 pg (27.0-33.0); MCHC 34.3 % (32.0-36.0); MCV 88 fL (80-95); Monocytes % 7.1; Neutrophils % 41.6; Platelet Count 224 10^3/uL (130-400); RBC 4.12 10^6/uL (3.93-5.22); RDW 12.4 % (11.7-14.6); RDW-SD 39.7 fL; WBC 5.19 10^3/uL (4.4-10.8)
[2022-05-06 09:50] LABS: ALT 42 U/L (14-59); AST 23 U/L (15-37); Albumin 3.8 g/dL (3.4-5.0); Alkaline Phosphatase 56 U/L (46-116); Anion Gap 9.3 mmol/L (3-11); BUN 17 mg/dL (7-18); Bilirubin, Total 0.4 mg/dL (0.2-1.0); CO2 28.7 mmol/L (21.0-32.0); Calcium 9.4 mg/dL (8.5-10.1); Chloride 103 mmol/L (98-107); Estimated GFR 68.63 (mL/min/1.73m2); Glucose 92 mg/dL (74-106); Potassium 3.8 mmol/L (3.5-5.1); Sodium 141 mmol/L (136-145)
== END 2022-05-06 01:39 | disposition home or self-care (01) ==
LOC: LBO 01:38
PROVIDERS: PCP Neuromusculoskeletal Medicine & OMM; Visit Provider Internal Medicine Hematology & Oncology
DX: C50.811 Malignant neoplasm of overlapping sites of right female breast (principal); Z17.0 Estrogen receptor positive status [ER+]
CPT/HCPCS: 36415; 80053; 85025

== ENCOUNTER 2022-08-12 14:39 | Outpatient (CLI) | payer MEDICAID, SELFPAY ==
[2022-08-12 13:52] LABS: Abs Immature Grans 0.02 10^3/uL (0.0-0.06); Absolute Basophil Count 0.02 10^3/uL (0.0-0.2); Absolute Eosinophil Count 0.13 10^3/uL (0.0-0.7); Absolute Neutrophil Count 3.11 10^3/uL (1.2-6.7); Basophils % 0.3; Eosinophils % 2.1; HCT 37.9 % (36.0-46.0); HGB 13.2 g/dL (11.2-15.7); Immature Grans % 0.3; Lymphocytes % 39.8; MCH 30.7 pg (27.0-33.0); MCHC 34.8 % (32.0-36.0); MCV 88 fL (80-95); MPV 10.7 fL (8.0-11.0); Neutrophils % 49.5; Platelet Count 231 10^3/uL (130-400); RDW 12.5 % (11.7-14.6); RDW-SD 40.1 fL; WBC 6.28 10^3/uL (4.4-10.8)
[2022-08-12 14:12] LABS: ALT 52 U/L (14-59); AST 30 U/L (15-37); Alkaline Phosphatase 58 U/L (46-116); Anion Gap 8.2 mmol/L (3-11); BUN 17 mg/dL (7-18); Bilirubin, Total 0.4 mg/dL (0.2-1.0); CO2 27.8 mmol/L (21.0-32.0); Calcium 9.2 mg/dL (8.5-10.1); Chloride 102 mmol/L (98-107); Estimated GFR 68.63 (mL/min/1.73m2); Glucose 97 mg/dL (74-106); Potassium 3.8 mmol/L (3.5-5.1); Sodium 138 mmol/L (136-145)
== END 2022-08-12 14:40 | disposition home or self-care (01) ==
LOC: LBO 14:45
PROVIDERS: PCP Neuromusculoskeletal Medicine & OMM; Visit Provider Internal Medicine Hematology & Oncology
DX: C50.811 Malignant neoplasm of overlapping sites of right female breast (principal); Z17.0 Estrogen receptor positive status [ER+]
CPT/HCPCS: 36415; 80053; 85025

== ENCOUNTER → 2023-05-05 02:32 | Outpatient (CLI) | payer BC, SELFPAY ==
--- NOTE | 2023-05-05 | DI.MAMMO_ITS ---
Exam(s) MG MAMMO SCREENING 60 MIN DUR EXAM: MG MAMMO SCREENING 60 MIN DUR CLINICAL HISTORY: PERSONAL H/O BREAST CA,Z85.2,SCREENING TECHNIQUE: Mammograms were interpreted according to the usual protocol including computer analysis w [employer] CAD system, tomosynthesis and C-view imaging. COMPARISON: 2013 through 2021 FINDINGS: The left breast is composed of heterogeneously dense fibroglandular densities, Breast Density categor y C. Status post right mastectomy. No suspicious masses or suspicious microcalcifications are seen in the left breast. No skin thickening or abnormal axillary lymph nodes are seen. There has been no significant change from prior exams. IMPRESSION: BI-RADS Category 1, Negative mammogram. Yearly screening mammography is recommended. Breast Density Category C, heterogeneously Dense. The mammogram demonstrates the patient's breast tissue is dense. Dense breast tissue is very common a nd is not abnormal but dense breast tissue can make it harder to find cancer on a mammogram. Also, de nse breast tissue may increase breast cancer risk. This information about the result of the mammogram report was provided to the patient to raise their awareness. Use this report when you speak with the patient about their risks for breast cancer, which includes their family history. At that time, you may recommend additional screening tests (Ultrasound or MRI) as they might be useful based on their r isk. A negative radiographic report should not delay biopsy if a dominant or clinically suspicious mass is present. Up to ten percent of cancers are not identified on mammography. A negative report may reinforce clinical impression. Adenosis and dense breasts may obscure an underlying neoplasm. False positive reports average 6 to 10%.
== END ==
PROVIDERS: PCP Neuromusculoskeletal Medicine & OMM; Visit Provider Nurse Practitioner Family
DX: Z12.31 Encounter for screening mammogram for malignant neoplasm of breast (principal); R92.333 Mammographic heterogeneous density, bilateral breasts; Z85.3 Personal history of malignant neoplasm of breast
CPT/HCPCS: 77063; 77067

== ENCOUNTER 2023-12-07 02:34 | Outpatient (CLI) | payer BC, SELFPAY ==
[2023-12-08 00:34] LABS: Estradiol 145 pg/mL (See Note)
[2023-12-08 09:21] LABS: FSH 33.9 mIU/mL (See Note)
== END 2023-12-07 02:35 | disposition home or self-care (01) ==
PROVIDERS: PCP Neuromusculoskeletal Medicine & OMM; Visit Provider Nurse Practitioner Family
DX: C50.811 Malignant neoplasm of overlapping sites of right female breast (principal); Z17.0 Estrogen receptor positive status [ER+]
CPT/HCPCS: 36415; 82670; 83001

== ENCOUNTER 2024-08-17 00:06 | Outpatient (CLI) | payer BC, SELFPAY ==
--- NOTE | 2024-08-17 | DI.MAMMO_ITS ---
Exam(s) MG MAMMO SCREENING 60 MIN DUR EXAM: MG MAMMO SCREENING 60 MIN DUR CLINICAL HISTORY: Z85.3,Z00.00 Personal HX of malignant neoplasm of breast, Post masectomy TECHNIQUE: Mammograms were interpreted according to the usual protocol including computer analysis w [employer] CAD system, tomosynthesis and C-view imaging. COMPARISON: 2020 through 2022 FINDINGS: The left breast is composed of heterogeneously dense fibroglandular densities, Breast Density categor y C. Status post right mastectomy. No suspicious masses or suspicious microcalcifications are seen. No skin thickening or abnormal axillary lymph nodes are seen. There has been no significant change from prior exams. IMPRESSION: BI-RADS Category 1, Negative mammogram. Yearly screening mammography is recommended. Breast Density Category C, heterogeneously Dense. The mammogram demonstrates the patient's breast tissue is dense. Dense breast tissue is very common a nd is not abnormal but dense breast tissue can make it harder to find cancer on a mammogram. Also, de nse breast tissue may increase breast cancer risk. This information about the result of the mammogram report was provided to the patient to raise their awareness. Use this report when you speak with the patient about their risks for breast cancer, which includes their family history. At that time, you may recommend additional screening tests (Ultrasound or MRI) as they might be useful based on their r isk. A negative radiographic report should not delay biopsy if a dominant or clinically suspicious mass is present. Up to ten percent of cancers are not identified on mammography. A negative report may reinforce clinical impression. Adenosis and dense breasts may obscure an underlying neoplasm. False positive reports average 6 to 10%.
== END 2024-08-17 00:26 ==
LOC: DI 00:06
PROVIDERS: PCP Neuromusculoskeletal Medicine & OMM; Visit Provider Nurse Practitioner Family
DX: Z00.00 Encounter for general adult medical examination without abnormal findings (principal); Z12.31 Encounter for screening mammogram for malignant neoplasm of breast; Z85.3 Personal history of malignant neoplasm of breast; R92.333 Mammographic heterogeneous density, bilateral breasts
CPT/HCPCS: 77063; 77067

== ENCOUNTER 2024-09-12 09:01 | Outpatient (CLI) | payer BC, SELFPAY ==
[2024-09-12 18:12] LABS: Estradiol 17 pg/mL (See Note)
[2024-09-12 18:47] LABS: FSH 35.2 mIU/mL (See Note)
== END 2024-09-12 09:02 | disposition home or self-care (01) ==
LOC: LBO 09:01
PROVIDERS: PCP Neuromusculoskeletal Medicine & OMM; Visit Provider Internal Medicine Hematology & Oncology
DX: C50.811 Malignant neoplasm of overlapping sites of right female breast (principal); Z17.0 Estrogen receptor positive status [ER+]
CPT/HCPCS: 36415; 82670; 83001